=== PATIENT | female | born 1975 | race Caucasian/White ===

== ENCOUNTER 2020-06-14 09:39 | Emergency (ER) | payer OTHER, BC ==
[~2020-06-14 09:39] MED LIST: CHANTEX; MTF500T PO
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
[2020-06-14 09:58] VITALS: BP 112/72
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
== END 2020-06-14 10:18 | disposition home or self-care (01) ==
LOC: EDUNIT# 09:39 → ER FS 09:41
DX: S63.501A Unspecified sprain of right wrist, initial encounter (principal); S50.11XA Contusion of right forearm, initial encounter; W23.0XXA Caught, crushed, jammed, or pinched between moving objects, initial encounter
CPT/HCPCS: 73110

== ENCOUNTER 2022-08-11 16:01 | Emergency (ER) | payer OTHER, BC ==
[~2022-08-11] VITALS: Ht 165 cm; Wt 74.0 kg
[2022-08-11] MEDS ORDERED: IBUP-1780 PO (16:18)
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
[2022-08-11 16:20] VITALS: BP 118/75
[2022-08-11] MEDS ORDERED: IBUPROFEN 800 MG (MOTRIN) TAB PO ONE (16:30)
== END 2022-08-11 16:30 | disposition home or self-care (01) ==
LOC: EDUNIT# 16:01 → ER FS 16:03
DX: S00.83XA Contusion of other part of head, initial encounter (principal); Y04.8XXA Assault by other bodily force, initial encounter; Y92.59 Other trade areas as the place of occurrence of the external cause; Y99.0 Civilian activity done for income or pay
CPT/HCPCS: 99283